=== PATIENT | female | born 1965 | race Caucasian/White ===

== ENCOUNTER → 2020-06-15 12:53 | Outpatient (BNVA) | payer OTHER, SELFPAY | PROVIDERS: Family Provider Nurse Practitioner Family; Visit Provider Emergency Medicine | DX: Z11.59 Encounter for screening for other viral diseases (principal) | CPT/HCPCS: 87635 ==

== ENCOUNTER 2021-01-14 15:31 | Emergency (ER) | payer BC, SELFPAY ==
[2021-01-14 15:34] VITALS: BP 149/87; PULSE 96; RESP 16; TEMP 36.8; O2SAT 95; BMI 50.2
--- NOTE | 2021-01-14 16:20 | ECG_ITS ---
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 Measurements Intervals [place] Rate: 99 P: 15 DE: 154 QRS: 20 QRSD: 81 T: 28 QT: 335 QTc: 430 Interpretive Statements SINUS RHYTHM Compared to ECG 07/02/2017 18:36:40 No significant changes Electronically Signed On 01-14-2021 17:41:27 CDT by Agustin Mckeon M.D. [id number]
--- NOTE | 2021-01-14 16:20 | XRR_ITS ---
PROCEDURE INFORMATION: Exam: XR Chest Exam date and time: 01/14/2021 4:54 PM Age: 55 years old Clinical indication: Chest pressure; Patient HX: Was exercising when pressure/pain started; Additional info: Chestpain dypsnea, pressure TECHNIQUE: Imaging protocol: XR of the chest. Views: 1 view. COMPARISON: CR Chest 1 [place] [id number] 07/02/2017 6:44 PM FINDINGS: Lungs: Unremarkable. No consolidation. Pleural spaces: Unremarkable. No pleural effusion. No pneumothorax. Heart/Mediastinum: Unremarkable. No cardiomegaly. Bones/joints: There is dextroscoliosis of the dorsal spine. XR/XR chest 1V portable [id number] IMPRESSION: No acute findings.
--- NOTE | 2021-01-14 16:25 | ED_ITS ---
HPI - Chest Pain General: Chief Complaint: Chest Pain Stated Complaint: CHEST PRESSURE Time Seen by Provider: 01/14/21 16:04 History of Present Illness: HPI narrative: 55-year-old female presents emergency room complaining of chest pain that began while she was exercising sure usually exercises daily she got on a bike today for about 30 minutes near the end of the exercise session she began of chest discomfort did not seem to be any particularly diaphoretic nauseated or short of breath so that she does not have any radiation to her to her neck or arms but did have radiation to her back. She checks her in 25 mg of aspirin at home. She is still feeling kind of a tight sensation in her chest. The pain is not reproducible she has had esophageal spasm in the past but states this feels different. No previous history of coronary artery disease she said she thought she had a stress test years ago and was told it was negative. She does not smoke she has been treated for diabetes in the past currently is controlling with diet but has not had it checked lately and she has gained a lot of weight she had previously lost. MD complaint: chest pain Pertinent past history: other (Diabetes mellitus) Onset (ago): hour(s) Timing of current episode: episodic Prior episodes: No Onset: during exertion Pain location: substernal Pain radiation: back Severity: moderate Quality: heaviness Relieving factors: rest Exacerbating factors: exertion Associated symptoms: Reports diaphoresis; Deny abdominal pain, dyspnea, fever(s), leg edema, nausea, palpitations, sense of impending doom, syncope or vomiting Treatment prior to arrival: none Review of Systems Const: Reports: diaphoresis; Denies: fever(s) ENMT: Denies: throat pain, ear or mastoid pain, nasal discharge or nasal congestion Card: Denies: palpitations or syncope Resp: Denies: dyspnea GI: Denies: abdominal pain, nausea or vomiting : Denies: flank pain, difficulty voiding, dysuria, urinary frequency or urinary urgency Skin/Breast: Denies: rash or pruritus [facility] ED PFSH: Social History Smoking and tobacco status: never smoked Alcohol intake: never Physical Exam Const: COMMON NORMALS: no acute distress GENERAL APPEARANCE: cooperative and comfortable ORIENTATION/CONSCIOUSNESS: Yes awake, Yes oriented to person, Yes oriented to place and Yes oriented to time HENMT: COMMON NORMALS: normocephalic, atraumatic, hearing grossly normal bilaterally and external ears normal HEAD & SCALP: normocephalic and atraumatic EXTERNAL EAR: Yes external ears normal Neck/C-Spine: COMMON NORMALS: no JVD Resp: COMMON NORMALS: normal respiratory effort, No retractions, No use of accessory muscles and clear to auscultation bilaterally AUSCULTATION: clear to auscultation bilaterally Cardio: COMMON NORMALS: no JVD, regular rate, regular rhythm and No murmurs present (Cardio) RATE: regular rate RHYTHM: regular rhythm GI: COMMON NORMALS: Soft to palpation and No hepatosplenomegaly present AUSCULTATION: Yes normoactive bowel sounds PALPATION: Yes Soft to palpation, No Tenderness to palpation present (GI), No Guarding due to palpation present (GI) and Yes No hepatosplenomegaly present Extremity: COMMON NORMALS: normal to inspection, capillary refill normal, no clubbing, cyanosis or edema, no calf tenderness and no pedal edema Neuro: SENSORIUM/ORIENTATION: Yes oriented to person, Yes oriented to place and Yes oriented to time Skin: COMMON NORMALS: no rashes or lesions noted GENERAL SKIN EXAM: no rashes or lesions noted Course Vital Signs: Vital signs: Vital Signs Temperature 98.3 F 01/14/21 15:34 Pulse Rate 76 01/14/21 18:20 Respiratory Rate 20 H 01/14/21 18:20 Blood Pressure 164/80 01/14/21 18:20 Pulse Oximetry 97 01/14/21 18:20 MDM - Chest Pain MDM Narrative: Medical decision making narrative: Serial troponins negative will discharge home started on aspirin daily also isosorbide mononitrate recommend she not continue exercise program to after stress test completed return if has further problems Lab Data: Labs: Lab Results 01/14/21 01/14/21 01/14/21 Range/Units 15:55 16:48 16:48 WBC 9.7 (4.0-10.0) 10^3/ uL RBC 4.47 (4.1-5.3) 10^6/u L Hgb 12.8 (11.5-15.3) g/dL Hct 40.9 (37.0-47.0) % MCV 91.5 (81-99) fL MCH 28.6 (28.0-34.0) pg MCHC 31.3 (30.0-36.0) g/dL RDW 12.9 (12.1-15.1) % Plt Count 384 (130-400) 10^3/c mm MPV 9.8 (7.4-10.4) fL Neut % (Auto) 58.0 % Lymph % (Auto) 30.4 % [place] % (Auto) 7.6 % Eos % (Auto) 3.1 % Baso % (Auto) 0.7 % Neut # (Auto) 5.60 (1.8-7.7) 10^3/u L Lymph # (Auto) 2.9 (0.8-4.8) 10^3/u L [place] # (Auto) 0.7 (0.2-0.9) 10^3/u L Eos # (Auto) 0.3 (0.0-0.8) 10^3/u L Baso # (Auto) 0.1 (0.0-0.1) 10^3/u L Nucleated RBC % (a uto) 0 % Nucleated RBCs # 0.0 /100WBC Sodium 137 (136-145) mmol/L Potassium 4.3 (3.5-5.1) mmol/L Chloride 99 (98-107) mmol/L Carbon Dioxide 28 (22-29) mmol/L Anion Gap 14.3 (5-19) BUN 10 (6-20) mg/dL Creatinine 0.7 (0.5-0.9) mg/dL GFR Calculation 86.2 L (90-130) mL/min Glucose 104 (65-115) mg/dL Calculated Osmolal ity 283 L (285-295) mOsm/k g Calcium 9.1 (8.5-10.5) mg/dL Total Bilirubin 0.3 (0.15-1.2) mg/dL AST 32 (0-32) U/L ALT 28 (0-33) U/L Alkaline Phosphata se 64 (35-105) IU/L Troponin T Baselin e 6 (0-10) ng/L Troponin T Hi Sens 6Hr Troponin T Hi Sens 6Hr Delta Total Protein 7.5 (6.6-8.7) g/dL Albumin 4.0 (3.5-5.2) g/dL Globulin 3.5 (1.3-4.6) g/dL 01/14/21 Range/Units 22:48 WBC (4.0-10.0) 10^3/ uL RBC (4.1-5.3) 10^6/u L Hgb (11.5-15.3) g/dL Hct (37.0-47.0) % MCV (81-99) fL MCH (28.0-34.0) pg MCHC (30.0-36.0) g/dL RDW (12.1-15.1) % Plt Count (130-400) 10^3/c mm MPV (7.4-10.4) fL Neut % (Auto) % Lymph % (Auto) % [place] % (Auto) % Eos % (Auto) % Baso % (Auto) % Neut # (Auto) (1.8-7.7) 10^3/u L Lymph # (Auto) (0.8-4.8) 10^3/u L [place] # (Auto) (0.2-0.9) 10^3/u L Eos # (Auto) (0.0-0.8) 10^3/u L Baso # (Auto) (0.0-0.1) 10^3/u L Nucleated RBC % (a uto) % Nucleated RBCs # /100WBC Sodium (136-145) mmol/L Potassium (3.5-5.1) mmol/L Chloride (98-107) mmol/L Carbon Dioxide (22-29) mmol/L Anion Gap (5-19) BUN (6-20) mg/dL Creatinine (0.5-0.9) mg/dL GFR Calculation (90-130) mL/min Glucose (65-115) mg/dL Calculated Osmolal ity (285-295) mOsm/k g Calcium (8.5-10.5) mg/dL Total Bilirubin (0.15-1.2) mg/dL AST (0-32) U/L ALT (0-33) U/L Alkaline Phosphata se (35-105) IU/L Troponin T Baselin e (0-10) ng/L Troponin T Hi Sens 6Hr Cancelled Troponin T Hi Sens 6Hr Delta Cancelled Total Protein (6.6-8.7) g/dL Albumin (3.5-5.2) g/dL Globulin (1.3-4.6) g/dL Discharge Plan Discharge Patient Disposition: Home Clinical Impression: Atypical chest pain Condition: Stable Prescriptions: New aspirin 81 mg tablet,chewable 81 mg PO DAILY Qty: 60 RF: 0 isosorbide mononitrate 30 mg tablet extended release 24 hr 30 mg PO DAILY Qty: 20 RF: 0 No Action atenolol 25 mg tablet 25 mg PO BID@0600,1800 RF: 0 Acidophilus 1 tab PO DAILY@0600 RF: 0 cetirizine 10 mg tablet 10 mg PO DAILY@0600 RF: 0 Xanax 0.5 mg Tablet 0.25 mg PO DAILY PRN (Reason: Anxiety) RF: 0 pantoprazole 40 mg tablet,delayed release (DR/EC) 40 mg PO BID@0600,1800 RF: 0 furosemide 20 mg tablet 20 mg PO DAILY@0600 RF: 0 duloxetine 60 mg capsule,delayed release(DR/EC) 60 mg PO DAILY@0600 RF: 0 Fish Oil 1 cap PO DAILY@0600 RF: 0 Vitamin C 1 tab PO DAILY@0600 RF: 0 biotin 1 tab PO DAILY@0600 RF: 0 calcium 1 tab PO DAILY@0600 RF: 0 multivitamin 1 tab PO DAILY@0600 RF: 0 Discharge Orders: Discharge ED (Routine); Ordered 01/14/21 Ordered By: Brett Burger Discharge Diet: Usual diet Discharge Activity: Limit activity as instructed Patient Instructions: Opioid Safety Activity Restrictions/Additional Instructions: community engagement manager [facility] avoid exertional activities until it is completed. For recurrent symptoms return to the emergency room. Coding Level of Care Code ED Core Drier for Martin Fwd Exam Comprehensive
[2021-01-14 16:33] LABS: Basophils # 0.1 10^3/uL (0.0-0.1); Basophils % 0.7 %; Eosinophils # 0.3 10^3/uL (0.0-0.8); Eosinophils % 3.1 %; Hematocrit 40.9 % (37.0-47.0); Hemoglobin 12.8 g/dL (11.5-15.3); Lymphocytes # 2.9 10^3/uL (0.8-4.8); Lymphocytes % 30.4 %; Mean Corpuscular HGB Conc 31.3 g/dL (30.0-36.0); Mean Corpuscular Hemoglobin 28.6 pg (28.0-34.0); Mean Corpuscular Volume 91.5 fL (81-99); Mean Platelet Volume 9.8 fL (7.4-10.4); Monocytes # 0.7 10^3/uL (0.2-0.9); Monocytes % 7.6 %; Nucleated Red Blood Cells % 0 %; Platelet Count 384 10^3/cmm (130-400); Red Blood Count 4.47 10^6/uL (4.1-5.3); Red Cell Distribution Width 12.9 % (12.1-15.1); White Blood Count 9.7 10^3/uL (4.0-10.0)
[2021-01-14 17:13] VITALS: BP 156/93; PULSE 95; RESP 21; O2SAT 97
[2021-01-14 17:28] LABS: Troponin(5th) Baseline 6 ng/L (0-10)
[2021-01-14 17:58] LABS: Alanine Aminotransferase 28 U/L (0-33); Alkaline Phosphatase 64 IU/L (35-105); Anion Gap 14.3 (5-19); Aspartate Amino Transferase 32 U/L (0-32); Blood Urea Nitrogen 10 mg/dL (6-20); Calcium 9.1 mg/dL (8.5-10.5); Carbon Dioxide 28 mmol/L (22-29); Chloride 99 mmol/L (98-107); Globulin 3.5 g/dL (1.3-4.6); Glomerular Filtration Rate 86.2 mL/min (90-130); Glucose 104 mg/dL (65-115); Osmolality Calculated 283 mOsm/kg (285-295); Potassium 4.3 mmol/L (3.5-5.1); Sodium 137 mmol/L (136-145); Total Bilirubin 0.3 mg/dL (0.15-1.2); Total Protein 7.5 g/dL (6.6-8.7)
[2021-01-14 18:12] VITALS: BP 164/80; PULSE 96; RESP 20; O2SAT 93
[2021-01-14 18:20] VITALS: BP 164/80; PULSE 76; RESP 20; O2SAT 97
--- NOTE | 2021-01-14 18:20 | ECG_ITS ---
[facility] Test Date: 2021-01-14 Pat Name: Yakelin Chi Department: Room: Gender: Female Career Development Manager: : 1965 Requested By: Brett Godinez Order Number: [id number] Art MD: Agustin Mckeon M.D. Measurements Intervals [place] Rate: 92 P: 25 VA: 151 QRS: 17 QRSD: 72 T: 13 QT: 339 QTc: 420 Interpretive Statements SINUS RHYTHM Compared to ECG 01/14/2021 15:39:31 No significant changes Electronically Signed On 01-15-2021 10:12:19 CDT by Agustin Mckeon M.D. [email or web address] southAires [email or web address]/store/[id number]
== END 2021-01-14 18:22 | disposition home or self-care (01) ==
PROVIDERS: Emergency Provider Family Medicine
DX: R07.9 Chest pain, unspecified (principal)
CPT/HCPCS: 71045; 80053; 84484; 85025; 93005; 99284

== ENCOUNTER 2021-04-16 11:13 | Outpatient (CLI) | payer BC, SELFPAY ==
[2021-04-16 11:26] VITALS: BMI 47.6
--- NOTE | 2021-04-16 11:27 | XR_ITS ---
WS: [id number] Exam: XR hand RT min 3V* [id number] Date/Time of Exam: 04/16/2021 11:27 AM Reason For Exam: BILATERAL HAND PAIN Findings: No fractures, soft tissue swelling, or unusual calcifications are noted. The hand shows normal bony alignment. There is no irregularity of the bony architecture. XR/XR hand RT min 3V* [id number] IMPRESSION: Normal right hand.
--- NOTE | 2021-04-16 11:27 | XR_ITS ---
WS: [id number] Exam: XR hand LT min 3V* [id number] Date/Time of Exam: 04/16/2021 11:27 AM Reason For Exam: BILATERAL HAND PAIN/L THUMB PAIN Findings: No fractures, soft tissue swelling, or unusual calcifications are noted. The hand shows normal bony alignment. There is no irregularity of the bony architecture. XR/XR hand LT min 3V* [id number] IMPRESSION: Normal left hand.
--- NOTE | 2021-04-16 12:00 | USCV_ITS ---
Yakelin Chi Age: 55 Gender: F : 1965 Exam Date: 04/16/2021 11:48 Ordering Phys: Patience Wray MD ([email or web address]) Technologist: [place] [facility] [place]: chest pain Rhythm: Sinus Patient History: Chest pain Cardiac Medications: atenolol Medications in past 24 hours: Contrast: Optison Stress Results Protocol: Luis Total dose(mL): Exercise Duration (min:sec): 4:40 METS: 7 Resting HR: 126 Resting BP: 118 / 70 Peak HR: 172 Peak BP: 174 / 93 Max Predicted HR: 163 106 % Max Predicted HR Target HR: 139 Double Product: 33191 Stress Summary: The patient's target heart rate was achieved BP Response: Normal Reason for Termination: Maximal effort/unable to continue Cardiac Symptoms: Dyspnea ECG Analysis Resting ECG: Stress ECG: Arrhythmia: MEASUREMENTS (Male/Female) Normal Values FINDINGS PROCEDURE: This is a technically difficult study and ultrasound enhancing agent was used per protocol. At the baseline, the patient's blood pressure was [118/70] mmHg with a heart rate of 126 bpm. The patient exercised for [4 minutes 40 seconds] on a standard Luis protocol. Patient attained a maximum heart rate of 172 beats per minute(105% of the maximum predicted heart rate) with a blood pressure at the peak exercise of [174/93] mm Hg. During the recovery phase, there were no new changes. Echocardiographic pictures were taken at the baseline, immediately following the peak exercise and during the recovery phase. Baseline echocardiogram: Normal left ventricular size and systolic function with ejection fraction estimated at 65 %. No regional wall motion abnormalities. Peak exercise echocardiogram: Normal augmentation of left ventricular systolic function with exercise. No new regional wall motion abnormalities. Recovery echocardiogram: Left ventricular systolic function normalizes. No regional wall motion abnormalities. CONCLUSIONS 1. This is a treadmill stress echocardiogram. 2. Fair exercise tolerance, attained a maximum of 7 METs. Double product of 29,929. 3. Normal blood pressure and heart rate response to exercise. Patient was tachycardic during rest and remained tachycardic late in recovery. 4. Normal echocardiographic response to exercise. 5. Normal EKG response to treadmill exercise. Please see separate report for the details. Patience Wray MD (Electronically Signed) Final Date: 21 April 2021 13:00 S
[2021-04-16] MEDS: perflutren protein-a microsphr 0.22 mg/mL SDV 3 mL IV (12:20)
[2021-04-16 12:32] VITALS: BP 130/79; PULSE 117
--- NOTE | 2021-04-16 12:47 | ECG_ITS ---
[facility] Test Date: 2021-04-16 Pat Name: Yakelin Chi Department: Room: Gender: Female Spares Scheduler: : 1965 Requested By: Patience Wray Order Number: [id number] Art MD: Patience Wray M.D. Interpretive Statements NAME OF STUDY: TREADMILL STRESS ECHOCARDIOGRAM INDICATION: Chest Pain PROCEDURE: At the baseline, the patient's blood pressure was 118/70 mmHg, oxygen saturation 94% with a heart rate of 95 bpm. The baseline electrocardiogram showed sinus tachycardia at 126 bpm. Normal axis with normal ST and T's. The patient exercised for 4 minutes 40 seconds on a standard Luis protocol. Patient attained a maximum heart rate of 172 beats per minute(105% of the maximum predicted heart rate) with a blood pressure at the peak exercise of 174/93 mm Hg. The EKG at the peak exercise revealed sinus tachycardia with no significant ST-T wave changes. Patient did not have any chest pain or any significant EKG changes with the exercise. During the recovery phase, there were no new changes. Blood pressure at the end of the recovery phase was 130/79 mm Hg with a heart rate of 117 beats per minute and oxygen saturation 92%. Patient remained tachycardic with heart rate in 120s in late recovery. Echocardiographic pictures were taken at the baseline, immediately following the peak exercise and during the recovery phase. CONCLUSION: 1. Normal EKG response to treadmill exercise. Patient was tachycardic at the beginning of the study. 2. No exercise-induced chest pain or cardiac arrhythmia 3. Fair exercise tolerance, attained a maximum of 7 METs. Maximum VO2 of 24.5 mL/kg/min. 4. Please see separate report for the echocardiographic response to exercise. Electronically Signed On 04-21-2021 12:42:20 CDT by Patience Wray M.D. [id number]
== END 2021-04-16 11:14 | disposition home or self-care (01) ==
PROVIDERS: PCP Nurse Practitioner Family; Visit Provider Internal Medicine Cardiovascular Disease
DX: R07.9 Chest pain, unspecified (principal); M79.642 Pain in left hand; M79.641 Pain in right hand
CPT/HCPCS: 73130; 93017; 93350; 93352; Q9956

== ENCOUNTER → 2021-06-22 10:33 | Outpatient (BNVA) | payer BC, SELFPAY | PROVIDERS: PCP Nurse Practitioner Family; Visit Provider Nurse Practitioner Family | DX: Z20.822 Contact with and (suspected) exposure to COVID-19 (principal); R05.9 Cough, unspecified; J06.9 Acute upper respiratory infection, unspecified | CPT/HCPCS: 87635 ==

== ENCOUNTER → 2021-07-06 13:06 | Outpatient (BNVA) | payer BC, SELFPAY | PROVIDERS: PCP Nurse Practitioner Family; Visit Provider Nurse Practitioner Family | DX: B37.9 Candidiasis, unspecified (principal); Z12.4 Encounter for screening for malignant neoplasm of cervix; Z12.31 Encounter for screening mammogram for malignant neoplasm of breast; Z13.820 Encounter for screening for osteoporosis; Z78.0 Asymptomatic menopausal state; U07.1 COVID-19 | CPT/HCPCS: 88175 ==

== ENCOUNTER → 2021-08-06 15:27 | Outpatient (BNVA) | payer BC, SELFPAY | PROVIDERS: PCP Nurse Practitioner Family; Visit Provider Nurse Practitioner Family | DX: M25.572 Pain in left ankle and joints of left foot; M79.672 Pain in left foot; M19.072 Primary osteoarthritis, left ankle and foot | CPT/HCPCS: 73610; 73630 ==

== ENCOUNTER 2021-10-09 13:15 | Outpatient (CLI) | payer BC, SELFPAY ==
--- NOTE | 2021-10-09 14:00 | MM_ITS ---
WS: [id number] SCREENING DIGITAL MAMMOGRAM WITH CAD HISTORY: screening COMPARISON: 07/20/2016 and 01/16/2015 Bilateral CC and MLO views submitted. Computer aided detection analyzed. Breast composition: The breasts are heterogeneously dense, which may obscure small masses. There is a new nodule which is ovoid towards the RIGHT axillary tail. This is marked with a marker as it is pal pable. This was not present on the prior studies. There are additional calcifications and nodules wit hin each breast and axillary lymph nodes which are stable. MM/[place] [id number] IMPRESSION: BI-RADS: 0-Incomplete: Need additional imaging evaluation FOLLOW UP: Need Additional Imaging Ultrasound recommended palpable 9 mm nodule towards the RIGHT axilla. This may be a lymph node or sebaceous cyst. New since 2015.
== END 2021-10-09 13:16 | disposition home or self-care (01) ==
LOC: RADSHAW 13:26
PROVIDERS: PCP Nurse Practitioner Family; Visit Provider Nurse Practitioner Family
DX: Z12.31 Encounter for screening mammogram for malignant neoplasm of breast (principal)
CPT/HCPCS: 77067

== ENCOUNTER → 2022-01-01 13:16 | Outpatient (BNVA) | payer BC, SELFPAY | PROVIDERS: PCP Nurse Practitioner Family; Visit Provider Nurse Practitioner Family | DX: M54.50 Low back pain, unspecified (principal); R51.9 Headache, unspecified; R53.83 Other fatigue; F41.9 Anxiety disorder, unspecified; Z78.0 Asymptomatic menopausal state; R00.0 Tachycardia, unspecified; I10 Essential (primary) hypertension; E66.9 Obesity, unspecified; K59.00 Constipation, unspecified; K21.9 Gastro-esophageal reflux disease without esophagitis; N39.0 Urinary tract infection, site not specified; J30.2 Other seasonal allergic rhinitis; J32.9 Chronic sinusitis, unspecified; M54.9 Dorsalgia, unspecified; F32.A Depression, unspecified | CPT/HCPCS: 80053; 80061; 82306; 82607; 82746; 83550; 84443 ==

== ENCOUNTER → 2022-01-04 10:23 | Outpatient (BNVA) | payer BC, SELFPAY | PROVIDERS: PCP Nurse Practitioner Family; Visit Provider Nurse Practitioner Family | DX: R73.9 Hyperglycemia, unspecified (principal) | CPT/HCPCS: 83036 ==

== ENCOUNTER → 2022-04-09 10:41 | Outpatient (BNVA) | payer BC, SELFPAY | PROVIDERS: PCP Nurse Practitioner Family; Visit Provider Nurse Practitioner Family | DX: E87.6 Hypokalemia (principal); I10 Essential (primary) hypertension; D72.829 Elevated white blood cell count, unspecified; N95.1 Menopausal and female climacteric states; Z09 Encounter for follow-up examination after completed treatment for conditions other than malignant neoplasm; N39.0 Urinary tract infection, site not specified | CPT/HCPCS: 80053 ==

== ENCOUNTER → 2022-06-14 11:21 | Outpatient (BNVA) | payer BC, SELFPAY | PROVIDERS: PCP Nurse Practitioner Family; Visit Provider Nurse Practitioner Family | DX: R10.9 Unspecified abdominal pain (principal); I10 Essential (primary) hypertension; K21.9 Gastro-esophageal reflux disease without esophagitis; R73.03 Prediabetes; E66.9 Obesity, unspecified; R10.31 Right lower quadrant pain; R10.813 Right lower quadrant abdominal tenderness; R11.0 Nausea; K57.92 Diverticulitis of intestine, part unspecified, without perforation or abscess without bleeding; F41.9 Anxiety disorder, unspecified; F32.A Depression, unspecified; J32.9 Chronic sinusitis, unspecified; J30.2 Other seasonal allergic rhinitis; K27.9 Peptic ulcer, site unspecified, unspecified as acute or chronic, without hemorrhage or perforation | CPT/HCPCS: 80053; 80061; 83036 ==

== ENCOUNTER 2022-08-27 12:17 | Emergency (ER) | payer SELFPAY ==
[2022-08-27] VITALS (12 sets, daily range): BP systolic 124–152; BP diastolic 66–99; PULSE 77–84; RESP 12–21; TEMP 36.6; O2SAT 97–100; BMI 46.8
--- NOTE | 2022-08-27 12:36 | ECG_ITS ---
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 Measurements Intervals [place] Rate: 77 P: 30 AK: 159 QRS: 15 QRSD: 85 T: 34 QT: 375 QTc: 427 Interpretive Statements SINUS RHYTHM MINIMAL VOLTAGE CRITERIA FOR LVH, CONSIDER NORMAL VARIANT [MEETS CRITERIA IN ONE OF: R(aVL), S(V1), R(V5), R(V5/V6)+S(V1)] Compared to ECG 01/14/2021 17:56:16 No significant changes Electronically Signed On 08-27-2022 16:49:38 INFECTIOUS DISEASE TECHNICIAN by Patience Wray M.D. [id number]
--- NOTE | 2022-08-27 13:59 | XRR_ITS ---
PROCEDURE INFORMATION: Exam: XR Chest Exam date and time: 08/27/2022 2:09 PM Age: 56 years old Clinical indication: Pain; Other: Not specified; Additional info: Chest pain, shoulder pain TECHNIQUE: Imaging protocol: Radiologic exam of the chest. Views: 1 view. COMPARISON: CR XR chest 1V portable [id number] 01/14/2021 4:43 PM FINDINGS: Lungs: Unremarkable. No consolidation. Pleural spaces: Unremarkable. No pleural effusion. No pneumothorax. Heart/Mediastinum: Stable cardiomediastinal silhouette. Bones/joints: Mild dextrocurvature of the thoracic spine seen. Other findings: The XR/XR chest 1V portable [id number] IMPRESSION: No acute findings.
--- NOTE | 2022-08-27 13:59 | ECG_ITS ---
[facility] Test Date: 2022-08-27 Pat Name: Yakelin Chi Department: Room: Gender: Female Photography Assistant: : 1965 Requested By: Brett Godinze Order Number: [id number] Art MD: Patience Wray M.D. Measurements Intervals [place] Rate: 79 P: 53 NM: 156 QRS: -8 QRSD: 75 T: -9 QT: 375 QTc: 431 Interpretive Statements SINUS RHYTHM POSSIBLE ANTERIOR MYOCARDIAL INFARCTION , PROBABLY OLD [30 ms Q WAVE IN V3/V4, OR R < 0.2 mV IN V4] Compared to ECG 08/27/2022 12:36:54 Myocardial infarct finding now present Electronically Signed On 08-27-2022 16:47:01 POISING INSPECTOR by Patience Wray M.D. [id number]
--- NOTE | 2022-08-27 14:31 | W.ED.CHESTPA ---
Documented by User: Brett Burger DO 09/06/22 07:48 HPI - Chest Pain General: Chief Complaint: Chest Pain Stated Complaint: Chest Pain and upper shoulder Time Seen by Provider: 08/27/22 13:55 Source: patient History of Present Illness: 56-year-old female presents emergency room with complaints of nausea after bowel movement. She is also a trip home from [place]. A convenient store. She had a large bowel movement afterwards she felt a what she describes a shifting sensation in her abdomen and it moved up into her chest and is remained there. She particularly notes it in the right upper chest. She has no difficulty breathing she has no vomiting no diarrhea she is not any hematochezia or melena. She did not previously had symptoms like this. Patient reports he previously had a stress test in the last few years that was negative although when I looked in the old records was not able to find it. No difficulty speech or swallowing or vision. Patient has been treated for diabetes with metformin in the past not currently taking anything. Previously had a cholecystectomy and no other abdominal surgeries. MD complaint: chest pain Onset (ago): hour(s) Timing of current episode: episodic Prior episodes: No Onset: other (After bowel movement) Pain location: right chest Severity: mild Quality: heaviness Relieving factors: nothing Exacerbating factors: nothing Associated symptoms: Reports leg edema and nausea; Deny abdominal pain, diaphoresis, dyspnea, fever(s), palpitations, sense of impending doom, syncope or vomiting Treatment prior to arrival: aspirin Review of Systems Const: Denies: fever(s) or diaphoresis ENMT: Denies: throat pain, ear or mastoid pain, nasal discharge or nasal congestion Card: Denies: chest pain, palpitations or syncope Resp: Denies: dyspnea GI: Reports: nausea; Denies: abdominal pain or vomiting : Denies: flank pain, difficulty voiding, dysuria, urinary frequency or urinary urgency Skin/Breast: Denies: rash or pruritus PFSH ED PFSH: Medical History Esophageal spasm GERD (gastroesophageal reflux disease) Hypertension Tachycardia Surgical History H/O section History of hernia surgery Hx of cholecystectomy Family History Father CAD (coronary artery disease) Myocardial infarction Diabetes Mother Atrial fibrillation Denies family history of Stroke Social History Smoking and tobacco status: never smoked Alcohol intake: never Physical Exam Const: COMMON NORMALS: no acute distress GENERAL APPEARANCE: cooperative and comfortable ORIENTATION/CONSCIOUSNESS: Yes awake, Yes oriented to person, Yes oriented to place and Yes oriented to time HENMT: COMMON NORMALS: normocephalic, atraumatic and hearing grossly normal bilaterally HEAD & SCALP: normocephalic and atraumatic Resp: COMMON NORMALS: normal respiratory effort, No retractions, No use of accessory muscles and clear to auscultation bilaterally AUSCULTATION: clear to auscultation bilaterally Cardio: COMMON NORMALS: regular rate, regular rhythm and No murmurs present (Cardio) RATE: regular rate RHYTHM: regular rhythm GI: COMMON NORMALS: Soft to palpation and No hepatosplenomegaly present AUSCULTATION: Yes normoactive bowel sounds PALPATION: Yes Soft to palpation, No Tenderness to palpation present (GI), No Guarding due to palpation present (GI) and Yes No hepatosplenomegaly present Extremity: COMMON NORMALS: normal to inspection, capillary refill normal, no clubbing, cyanosis or edema, no calf tenderness and no pedal edema Neuro: SENSORIUM/ORIENTATION: Yes oriented to person, Yes oriented to place and Yes oriented to time Skin: COMMON NORMALS: no rashes or lesions noted GENERAL SKIN EXAM: no rashes or lesions noted Course Vital Signs: Vital signs: Vital Signs Temperature 97.9 F 08/27/22 12:25 Pulse Rate 84 08/27/22 19:53 Respiratory Rate 18 08/27/22 19:53 Blood Pressure 146/99 08/27/22 19:53 Pulse Oximetry 98 08/27/22 19:53 Oxygen Delivery Me thod 08/27/22 12:25 MDM - Chest Pain Medical Decision Making Care signed out to Dr. Alvarez at change of shift. See final notes for diagnosis and disposition. 56-year-old female checked out to me by the previous physician at shift change. This lady had chest discomfort. It is much improved now. Her potassium is low at 3.1 and is repleted. BMP is otherwise not remarkable. CBC is not remarkable. Chest x-ray is negative. Troponin was 6 initially, and remains so at 2 hours. EKG shows no acute ST changes. She is improved significantly after oral repletion of potassium. She will be allowed home. Medical Records I reviewed the patient's medical records. Lab Data I reviewed the patient's lab results. 08/27/22 16:04 08/27/22 16:04 Radiology Impressions Chest X-Ray 08/27/22 13:59 IMPRESSION: No acute findings. ADDENDUM: 08/27/22 1505 IMPRESSION: No acute findings. Laboratory Results WBC 10.4 10^3/uL (4.0-10.0) H 08/27/22 16:04 RBC 4.37 10^6/uL (4.1-5.3) 08/27/22 16:04 Hgb 12.4 g/dL (11.5-15.3) 08/27/22 16:04 Hct 39.3 % (37.0-47.0) 08/27/22 16:04 MCV 89.9 fl (81-99) 08/27/22 16:04 MCH 28.4 pg (28.0-34.0) 08/27/22 16:04 MCHC 31.6 g/dL (30.0-36.0) 08/27/22 16:04 RDW 13.4 % (12.1-15.1) 08/27/22 16:04 Plt Count 398 10^3/cmm (130-400) 08/27/22 16:04 MPV 8.8 fL (7.4-10.4) 08/27/22 16:04 Neut % (Auto) 51.9 % 08/27/22 16:04 Lymph % (Auto) 36.4 % 08/27/22 16:04 [place] % (Auto) 8.0 % 08/27/22 16:04 Eos % (Auto) 2.7 % 08/27/22 16:04 Baso % (Auto) 0.5 % 08/27/22 16:04 Neut # (Auto) 5.40 10^3/uL (1.8-7.7) 08/27/22 16:04 Lymph # (Auto) 3.8 10^3/uL (0.8-4.8) 08/27/22 16:04 [place] # (Auto) 0.8 10^3/uL (0.2-0.9) 08/27/22 16:04 Eos # (Auto) 0.3 10^3/uL (0.0-0.8) 08/27/22 16:04 Baso # (Auto) 0.1 10^3/uL (0.0-0.1) 08/27/22 16:04 Nucleated RBC % (auto) 0 % 08/27/22 16:04 Nucleated RBCs # 0.0 /100WBC 08/27/22 16:04 Sodium 133 mmol/L (136-145) L 08/27/22 16:04 Potassium 3.1 mmol/L (3.5-5.1) L 08/27/22 16:04 Chloride 92 mmol/L (98-107) L 08/27/22 16:04 Carbon Dioxide 31 mmol/L (22-29) H 08/27/22 16:04 Anion Gap 13.1 (5-19) 08/27/22 16:04 BUN 18 mg/dL (6-20) 08/27/22 16:04 Creatinine 0.9 mg/dL (0.5-0.9) 08/27/22 16:04 GFR Calculation 64.3 mL/min (90-130) L 08/27/22 16:04 Glucose 105 mg/dL (65-115) 08/27/22 16:04 Calculated Osmolality 278 mOsm/kg (285-295) L 08/27/22 16:04 Calcium 9.1 mg/dL (8.5-10.5) 08/27/22 16:04 Total Bilirubin 0.3 mg/dL (0.15-1.2) 08/27/22 16:04 AST 46 U/L (0-32) H 08/27/22 16:04 ALT 31 U/L (0-33) 08/27/22 16:04 Alkaline Phosphatase 56 U/L (35-105) 08/27/22 16:04 Troponin T Baseline 6 ng/L (0-10) 08/27/22 16:04 Troponin T 120 Minute 6.00 ng/L (0-10) 08/27/22 18:18 Delta Troponin T 0 ABS# (0-10) 08/27/22 18:18 Total Protein 8.0 g/dL (6.6-8.7) 08/27/22 16:04 Albumin 4.1 g/dL (3.5-5.2) 08/27/22 16:04 Globulin 3.9 g/dL (1.3-4.6) 08/27/22 16:04 Discharge Plan Discharge Patient Disposition: Home Clinical Impression: Chest pain, Hypokalemia Condition: Stable Prescriptions: No Action isosorbide mononitrate 30 mg tablet extended release 24 hr 15 mg PO DAILY polyethylene glycol 3350 [Miralax] 17 gram/dose powder 17 g PO DAILY PRN (Reason: Constipation) vitamin B complex [B Complex-Vitamin B12] Tablet 1 tab PO QPM cholecalciferol (vitamin D3) 10 mcg (400 unit) capsule 10 mcg PO QPM potassium chloride 20 mEq tablet extended release 20 meq PO DAILY Qty: 30 6RF ondansetron HCl 4 mg tablet 4 mg PO Q6H PRN (Reason: nausea and vomiting) Qty: 90 0RF Xanax 0.5 mg tablet 0.25 mg PO DAILY PRN (Reason: Anxiety) Qty: 90 0RF duloxetine 60 mg capsule,delayed release(DR/EC) 60 mg PO BID 90 Days Qty: 180 1RF hydroxyzine HCl 10 mg tablet 10 mg PO QID PRN (Reason: itching) Qty: 90 1RF levocetirizine [Xyzal] 5 mg tablet 5 mg PO DAILY 90 Days Qty: 90 1RF pantoprazole 40 mg tablet,delayed release (DR/EC) 40 mg PO DAILY 90 Days Qty: 90 1RF atenolol 50 mg tablet 50 mg PO DAILY 90 Days Qty: 90 1RF hydrochlorothiazide 25 mg tablet 25 mg PO DAILY 90 Days Qty: 90 1RF aspirin 81 mg tablet,chewable 81 mg PO DAILY Qty: 60 0RF Calcium 500 500 mg calcium (1,250 mg) Tablet 500 mg PO QPM Acidophilus 500 million cell Tablet 500 mmu cells PO DAILY Fish Oil 300-1,000 mg Capsule 1 cap PO QPM Women's 50 Plus Daily Formula 400 mcg-500 mg calcium-20 mcg Tablet 1 tab PO QPM Discharge Orders: Discharge ED (Routine); Ordered 08/27/22 Ordered By: Fernandez Alvarez Referrals: Emma Richardson NP [Primary Care Provider] - 4-7 days Patient Instructions: Chest Pain (ED), Hypokalemia (ED) Activity Restrictions/Additional Instructions: Consider having your potassium rechecked next week. Return for worsening chest discomfort, shortness of breath, other concerning symptoms. 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 Documented by User: Fernandez Alvarez DO 08/28/22 05:35 HPI - Chest Pain General: Chief Complaint: Chest Pain Stated Complaint: Chest Pain and upper shoulder Time Seen by Provider: 08/27/22 13:55 PFSH ED PFSH: Medical History Esophageal spasm GERD (gastroesophageal reflux disease) Hypertension Tachycardia Surgical History H/O section History of hernia surgery Hx of cholecystectomy Family History Father CAD (coronary artery disease) Myocardial infarction Diabetes Mother Atrial fibrillation Denies family history of Stroke Social History Smoking and tobacco status: never smoked Alcohol intake: never Course Vital Signs: Vital signs: Vital Signs Temperature 97.9 F 08/27/22 12:25 Pulse Rate 84 08/27/22 19:53 Respiratory Rate 18 08/27/22 19:53 Blood Pressure 146/99 08/27/22 19:53 Pulse Oximetry 98 08/27/22 19:53 Oxygen Delivery Me thod 08/27/22 12:25 MDM - Chest Pain Medical Decision Making 56-year-old female checked out to me by the previous physician at shift change. This lady had chest discomfort. It is much improved now. Her potassium is low at 3.1 and is repleted. BMP is otherwise not remarkable. CBC is not remarkable. Chest x-ray is negative. Troponin was 6 initially, and remains so at 2 hours. EKG shows no acute ST changes. She is improved significantly after oral repletion of potassium. She will be allowed home. Lab Data 08/27/22 16:04 08/27/22 16:04 Radiology Impressions Chest X-Ray 08/27/22 13:59 IMPRESSION: No acute findings. ADDENDUM: 08/27/22 1505 IMPRESSION: No acute findings. Laboratory Results WBC 10.4 10^3/uL (4.0-10.0) H 08/27/22 16:04 RBC 4.37 10^6/uL (4.1-5.3) 08/27/22 16:04 Hgb 12.4 g/dL (11.5-15.3) 08/27/22 16:04 Hct 39.3 % (37.0-47.0) 08/27/22 16:04 MCV 89.9 fl (81-99) 08/27/22 16:04 MCH 28.4 pg (28.0-34.0) 08/27/22 16:04 MCHC 31.6 g/dL (30.0-36.0) 08/27/22 16:04 RDW 13.4 % (12.1-15.1) 08/27/22 16:04 Plt Count 398 10^3/cmm (130-400) 08/27/22 16:04 MPV 8.8 fL (7.4-10.4) 08/27/22 16:04 Neut % (Auto) 51.9 % 08/27/22 16:04 Lymph % (Auto) 36.4 % 08/27/22 16:04 [place] % (Auto) 8.0 % 08/27/22 16:04 Eos % (Auto) 2.7 % 08/27/22 16:04 Baso % (Auto) 0.5 % 08/27/22 16:04 Neut # (Auto) 5.40 10^3/uL (1.8-7.7) 08/27/22 16:04 Lymph # (Auto) 3.8 10^3/uL (0.8-4.8) 08/27/22 16:04 [place] # (Auto) 0.8 10^3/uL (0.2-0.9) 08/27/22 16:04 Eos # (Auto) 0.3 10^3/uL (0.0-0.8) 08/27/22 16:04 Baso # (Auto) 0.1 10^3/uL (0.0-0.1) 08/27/22 16:04 Nucleated RBC % (auto) 0 % 08/27/22 16:04 Nucleated RBCs # 0.0 /100WBC 08/27/22 16:04 Sodium 133 mmol/L (136-145) L 08/27/22 16:04 Potassium 3.1 mmol/L (3.5-5.1) L 08/27/22 16:04 Chloride 92 mmol/L (98-107) L 08/27/22 16:04 Carbon Dioxide 31 mmol/L (22-29) H 08/27/22 16:04 Anion Gap 13.1 (5-19) 08/27/22 16:04 BUN 18 mg/dL (6-20) 08/27/22 16:04 Creatinine 0.9 mg/dL (0.5-0.9) 08/27/22 16:04 GFR Calculation 64.3 mL/min (90-130) L 08/27/22 16:04 Glucose 105 mg/dL (65-115) 08/27/22 16:04 Calculated Osmolality 278 mOsm/kg (285-295) L 08/27/22 16:04 Calcium 9.1 mg/dL (8.5-10.5) 08/27/22 16:04 Total Bilirubin 0.3 mg/dL (0.15-1.2) 08/27/22 16:04 AST 46 U/L (0-32) H 08/27/22 16:04 ALT 31 U/L (0-33) 08/27/22 16:04 Alkaline Phosphatase 56 U/L (35-105) 08/27/22 16:04 Troponin T Baseline 6 ng/L (0-10) 08/27/22 16:04 Troponin T 120 Minute 6.00 ng/L (0-10) 08/27/22 18:18 Delta Troponin T 0 ABS# (0-10) 08/27/22 18:18 Total Protein 8.0 g/dL (6.6-8.7) 08/27/22 16:04 Albumin 4.1 g/dL (3.5-5.2) 08/27/22 16:04 Globulin 3.9 g/dL (1.3-4.6) 08/27/22 16:04 Discharge Plan Discharge Patient Disposition: Home Clinical Impression: Chest pain, Hypokalemia Condition: Stable Prescriptions: No Action isosorbide mononitrate 30 mg tablet extended release 24 hr 15 mg PO DAILY polyethylene glycol 3350 [Miralax] 17 gram/dose powder 17 g PO DAILY PRN (Reason: Constipation) vitamin B complex [B Complex-Vitamin B12] Tablet 1 tab PO QPM cholecalciferol (vitamin D3) 10 mcg (400 unit) capsule 10 mcg PO QPM potassium chloride 20 mEq tablet extended release 20 meq PO DAILY Qty: 30 6RF ondansetron HCl 4 mg tablet 4 mg PO Q6H PRN (Reason: nausea and vomiting) Qty: 90 0RF Xanax 0.5 mg tablet 0.25 mg PO DAILY PRN (Reason: Anxiety) Qty: 90 0RF duloxetine 60 mg capsule,delayed release(DR/EC) 60 mg PO BID 90 Days Qty: 180 1RF hydroxyzine HCl 10 mg tablet 10 mg PO QID PRN (Reason: itching) Qty: 90 1RF levocetirizine [Xyzal] 5 mg tablet 5 mg PO DAILY 90 Days Qty: 90 1RF pantoprazole 40 mg tablet,delayed release (DR/EC) 40 mg PO DAILY 90 Days Qty: 90 1RF atenolol 50 mg tablet 50 mg PO DAILY 90 Days Qty: 90 1RF hydrochlorothiazide 25 mg tablet 25 mg PO DAILY 90 Days Qty: 90 1RF aspirin 81 mg tablet,chewable 81 mg PO DAILY Qty: 60 0RF Calcium 500 500 mg calcium (1,250 mg) Tablet 500 mg PO QPM Acidophilus 500 million cell Tablet 500 mmu cells PO DAILY Fish Oil 300-1,000 mg Capsule 1 cap PO QPM Women's 50 Plus Daily Formula 400 mcg-500 mg calcium-20 mcg Tablet 1 tab PO QPM Discharge Orders: Discharge ED (Routine); Ordered 08/27/22 Ordered By: Fernandez Alvarez Referrals: Emma Richardson NP [Primary Care Provider] - 4-7 days Patient Instructions: Chest Pain (ED), Hypokalemia (ED) Activity Restrictions/Additional Instructions: Consider having your potassium rechecked next week. Return for worsening chest discomfort, shortness of breath, other concerning symptoms. 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
--- NOTE | 2022-08-27 15:59 | ECG_ITS ---
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 Measurements Intervals [place] Rate: 76 P: 143 VT: 155 QRS: 21 QRSD: 76 T: 91 QT: 375 QTc: 422 Interpretive Statements ECTOPIC ATRIAL RHYTHM ABNORMAL QRS-T ANGLE [QRS-T AXIS DIFFERENCE > 60] Compared to ECG 08/27/2022 14:51:41 Ectopic atrial rhythm now present Sinus rhythm no longer present Myocardial infarct finding no longer present Electronically Signed On 08-28-2022 7:15:47 MAINFRAME ARCHITECT by Patience Wray M.D. [id number]
[2022-08-27 16:16] LABS: Basophils # 0.1 10^3/uL (0.0-0.1); Basophils % 0.5 %; Eosinophils # 0.3 10^3/uL (0.0-0.8); Eosinophils % 2.7 %; Hematocrit 39.3 % (37.0-47.0); Hemoglobin 12.4 g/dL (11.5-15.3); Lymphocytes # 3.8 10^3/uL (0.8-4.8); Lymphocytes % 36.4 %; Mean Corpuscular HGB Conc 31.6 g/dL (30.0-36.0); Mean Corpuscular Hemoglobin 28.4 pg (28.0-34.0); Mean Corpuscular Volume 89.9 fl (81-99); Mean Platelet Volume 8.8 fL (7.4-10.4); Monocytes # 0.8 10^3/uL (0.2-0.9); Neutrophils % 51.9 %; Nucleated Red Blood Cells % 0 %; Platelet Count 398 10^3/cmm (130-400); Red Blood Count 4.37 10^6/uL (4.1-5.3); Red Cell Distribution Width 13.4 % (12.1-15.1); White Blood Count 10.4 10^3/uL (4.0-10.0)
[2022-08-27 16:28] LABS: Alanine Aminotransferase 31 U/L (0-33); Albumin Level 4.1 g/dL (3.5-5.2); Alkaline Phosphatase 56 U/L (35-105); Anion Gap 13.1 (5-19); Aspartate Amino Transferase 46 U/L (0-32); Blood Urea Nitrogen 18 mg/dL (6-20); Calcium 9.1 mg/dL (8.5-10.5); Carbon Dioxide 31 mmol/L (22-29); Chloride 92 mmol/L (98-107); Globulin 3.9 g/dL (1.3-4.6); Glomerular Filtration Rate 64.3 mL/min (90-130); Glucose 105 mg/dL (65-115); Osmolality Calculated 278 mOsm/kg (285-295); Potassium 3.1 mmol/L (3.5-5.1); Sodium 133 mmol/L (136-145); Total Bilirubin 0.3 mg/dL (0.15-1.2)
[2022-08-27 16:48] LABS: Troponin(5th) Baseline 6 ng/L (0-10)
[2022-08-27 19:22] LABS: Troponin 5 2HR Delta 0 ABS# (0-10)
[2022-08-27] MEDS: potassium chloride ER 20 mEq Tablet 40 MEQ PO (19:52)
--- NOTE | 2022-08-27 19:59 | ECG_ITS ---
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 Measurements Intervals [place] Rate: 117 P: 138 HI: 168 QRS: 129 QRSD: 85 T: 141 QT: 431 QTc: 603 Interpretive Statements SINUS TACHYCARDIA ARM LEADS REVERSED [INVERTED P AND QRS IN I] ABNORMAL RHYTHM ECG Compared to ECG 08/27/2022 14:51:41 Sinus rhythm no longer present Myocardial infarct finding no longer present Electronically Signed On 08-28-2022 7:16:00 PULMONARY PHYSICIAN by Patience Wray M.D. [id number]
== END 2022-08-27 19:53 | disposition home or self-care (01) ==
PROVIDERS: Family Medicine; Emergency Provider Emergency Medicine; PCP Nurse Practitioner Family
DX: R07.9 Chest pain, unspecified (principal); E87.6 Hypokalemia; Z79.82 Long term (current) use of aspirin; I10 Essential (primary) hypertension
CPT/HCPCS: 36415; 71045; 80053; 84484; 85025; 93005; 99285